=== PATIENT | male | born 1960 | race Caucasian/White ===

== ENCOUNTER 2024-07-26 08:49 | Emergency (ER) | payer SELFPAY ==
[2024-07-26] MEDS ORDERED: Sodium Chloride 0.9% 2.5 ML Syringe FLUSH PRN (09:14)
[2024-07-26] MEDS ORDERED: Sodium Chloride 0.9% 10 ML Syringe FLUSH PRN (09:14)
[2024-07-26] MEDS: HYDROmorphone 1 MG/ML Syringe IVPUSH ONE (09:49)
[2024-07-26 10:02] LABS: BASOPHILS ABSOLUTE AUTO 0.02 K/uL (0.00-0.20); BASOPHILS PERCENT AUTO 0.3 % (0.0-1.0); EOSINOPHILS ABSOLUTE AUTO 0.06 K/uL (0.00-0.45); HEMATOCRIT 36.3 % (42.0-52.0); IMMATURE GRAN ABSOLUTE AUTO 0.02 K/uL (0.00-0.05); IMMATURE GRAN PERCENT AUTO 0.3 % (0.0-0.4); LYMPHOCYTES ABSOLUTE AUTO 1.41 K/uL (1.00-4.80); LYMPHOCYTES PERCENT AUTO 24.4 % (24.0-44.0); MEAN CORPUSCULAR HEMOGLOBIN 34.1 pg (28.0-32.0); MEAN CORPUSCULAR HGB CONC 35.8 g/dL (32.0-36.0); MEAN CORPUSCULAR VOLUME 95.3 fL (83.0-99.0); MEAN PLATELET VOLUME 10.7 fL (9.4-12.4); MONOCYTES ABSOLUTE AUTO 0.53 K/uL (0.00-0.80); MONOCYTES PERCENT AUTO 9.2 % (0.0-8.0); NEUTROPHILS ABSOLUTE AUTO 3.73 K/uL (1.80-7.70); NEUTROPHILS PERCENT AUTO 64.8 % (41.0-71.0); PLATELET COUNT,PLT 159 K/uL (150-400); RED BLOOD CELL COUNT 3.81 M/uL (4.52-5.90); WHITE BLOOD CELL COUNT,WBC 5.77 K/uL (3.9-11.3)
[2024-07-26 10:12] LABS: INR 1.04 (0.86-1.11)
[2024-07-26 10:16] LABS: CALCIUM 8.9 mg/dL (8.5-10.1); CARBON DIOXIDE,CO2 24.7 mmol/L (21.0-32.0); CREATININE 1.1 mg/dL (0.8-1.3); EST CRCL DRUG DOSING (CG) 75.66 mL/min; POTASSIUM,K 3.8 mmol/L (3.5-5.1)
[2024-07-26] MEDS ORDERED: Naloxone 0.4 MG/ML SDV IVPUSH PRN (10:23)
[2024-07-26] MEDS: fentaNYL 100 MCG/2 ML SDV IVPUSH ONE (10:37)
== END 2024-07-26 11:34 | disposition home or self-care (01) ==
LOC: MW.ED 08:49
DX: S82.852A Displaced trimalleolar fracture of left lower leg, initial encounter for closed fracture (principal); W01.0XXA Fall on same level from slipping, tripping and stumbling without subsequent striking against object, initial encounter; Z75.8 Other problems related to medical facilities and other health care
CPT/HCPCS: 27818; 36415; 73600; 73610; 73630; 80048; 85025; 85610; 96374; 99283; J1170; J3010; 99284

== ENCOUNTER 2024-08-06 10:46 | Day surgery (SDC) | payer SELFPAY ==
[~2024-08-06 10:46] MED LIST: Lactated Ringers 1,000 ML IV SCH; ceFAZolin 2 GM in Sodium Chloride 0.9% 50 ML IV ONE
[2024-08-06] MEDS ORDERED: dexmedeTOMIDine HCl 200 MCG/2 ML SDV IV ONE (10:47)
[2024-08-06] MEDS ORDERED: Bupivacaine 0.25% 30 ML SDV ONE (11:41)
[2024-08-06] MEDS ORDERED: Propofol 200 MG/20 ML SDV ONE (12:04)
[2024-08-06] MEDS ORDERED: fentaNYL 100 MCG/2 ML SDV ONE ×2 (12:04→13:25)
[2024-08-06] MEDS ORDERED: Ondansetron 4 MG/2 ML SDV ONE (12:05)
[2024-08-06] MEDS ORDERED: Lidocaine 2% 5 ML SDV ONE (12:05)
[2024-08-06] MEDS ORDERED: Dexamethasone 4 MG/ML 5 ML MDV ONE (12:05)
[2024-08-06] MEDS ORDERED: Ropivacaine 0.5% 5 MG/ML 30 ML SDV ONE (12:13)
[2024-08-06] MEDS: Lactated Ringers 1,000 ML IV SCH (12:40)
[2024-08-06] MEDS ORDERED: ePHEDrine 50 MG/ML SDV ONE (12:53)
[2024-08-06] MEDS ORDERED: ceFAZolin 2 GM Vial ONE (12:54)
[2024-08-06] MEDS ORDERED: Ketamine HCL/NACL, ISO-OSM 50 MG/5 ML Syringe ONE (13:01)
[2024-08-06] MEDS ORDERED: Ketorolac 30 MG/ML SDV ONE (13:47)
[2024-08-06] MEDS ORDERED: Metoclopramide 10 MG/2 ML SDV IVPUSH PRN (14:49)
[2024-08-06] MEDS ORDERED: Morphine 2 MG/ML SYRINGE IVPUSH PRN (14:49)
[2024-08-06] MEDS ORDERED: Albuterol 0.083% 2.5 MG/3 ML Neb Soln NEB PRN (14:49)
[2024-08-06] MEDS ORDERED: Naloxone 0.4 MG/ML SDV IVPUSH PRN (14:49)
[2024-08-06] MEDS ORDERED: Phenylephrine HCl In 0.9% NaCl 1 MG/10 ML Syringe IVPUSH PRN (14:49)
[2024-08-06] MEDS ORDERED: Ondansetron 4 MG/2 ML SDV IVPUSH PRN (14:49)
[2024-08-06] MEDS ORDERED: HYDROmorphone 1 MG/ML Syringe IVPUSH PRN (14:49)
[2024-08-06] MEDS: fentaNYL 50 MCG/ML SDV IVPUSH PRN (14:54)
== END 2024-08-06 16:00 | disposition home or self-care (01) ==
LOC: MW.SDS 10:46
PROVIDERS: ATTEND Orthopaedic Surgery
DX: S82.852A Displaced trimalleolar fracture of left lower leg, initial encounter for closed fracture (principal); Z79.899 Other long term (current) drug therapy
CPT/HCPCS: 27822; 64447; 76000; J0131; J0690; J1100; J1885; J2704; J2795; J3010; J7120; C1713; J0665; J2405; J3490

== ENCOUNTER 2024-08-19 06:55 | Day surgery (SDC) | payer SELFPAY ==
[2024-08-19] MEDS: Lactated Ringers 1,000 ML IV SCH (07:10)
[2024-08-19] MEDS ORDERED: Lidocaine 2% 5 ML SDV ONE (07:14)
[2024-08-19] MEDS ORDERED: Ropivacaine 0.5% 5 MG/ML 30 ML SDV ONE (07:14)
[2024-08-19] MEDS ORDERED: Midazolam 1 MG/ML 2 ML SDV ONE (07:25)
[2024-08-19] MEDS ORDERED: fentaNYL 100 MCG/2 ML SDV ONE (07:25)
[2024-08-19] MEDS ORDERED: Propofol 200 MG/20 ML SDV ONE (07:25)
[2024-08-19] MEDS ORDERED: Ondansetron 4 MG/2 ML SDV ONE (07:26)
[2024-08-19] MEDS ORDERED: Dexamethasone 4 MG/ML 5 ML MDV ONE (07:26)
[2024-08-19] MEDS ORDERED: ceFAZolin 1 GM Vial ONE (07:47)
[2024-08-19] MEDS ORDERED: Ondansetron 4 MG/2 ML SDV IVPUSH PRN (07:48)
[2024-08-19] MEDS ORDERED: fentaNYL 50 MCG/ML SDV IVPUSH PRN (07:48)
[2024-08-19] MEDS ORDERED: Morphine 2 MG/ML SYRINGE IVPUSH PRN (07:48)
[2024-08-19] MEDS ORDERED: droPERidol 5 MG/2 ML SDV IVPUSH PRN (07:48)
[2024-08-19] MEDS ORDERED: Naloxone 0.4 MG/ML SDV IVPUSH PRN (07:48)
[2024-08-19] MEDS ORDERED: Metoclopramide 10 MG/2 ML SDV IVPUSH PRN (07:48)
[2024-08-19] MEDS ORDERED: Phenylephrine HCl In 0.9% NaCl 1 MG/10 ML Syringe IVPUSH PRN (07:48)
[2024-08-19] MEDS ORDERED: Albuterol 0.083% 2.5 MG/3 ML Neb Soln NEB PRN (07:48)
[2024-08-19] MEDS ORDERED: ePHEDrine 50 MG/ML SDV ONE (08:02)
[2024-08-19] MEDS: HYDROmorphone 1 MG/ML Syringe IVPUSH PRN (09:33)
[2024-08-19] MEDS ORDERED: Ketorolac 30 MG/ML SDV ONE (09:43)
== END 2024-08-19 10:45 | disposition home or self-care (01) ==
LOC: MW.SDS 06:55
PROVIDERS: ATTEND Orthopaedic Surgery
DX: S82.852A Displaced trimalleolar fracture of left lower leg, initial encounter for closed fracture (principal); I10 Essential (primary) hypertension; Z79.899 Other long term (current) drug therapy
CPT/HCPCS: 27766; 76000; J0131; J0690; J1100; J1171; J1885; J2250; J2704; J2795; J3010; J7120; 01480; 64447; C1713; J2405; J3490